=== PATIENT | female | born 1940 | race Caucasian/White ===

== ENCOUNTER 2018-07-08 21:26 | Emergency (ER) | payer MEDICARE, OTHER ==
[~2018-07-08] VITALS: Ht 152.4 cm; Wt 59.0 kg
[~2018-07-08 21:26] MED LIST: ASPIRIN325 PO; BENADRYL25 MG PO; BENICAR40 MG PO; COLACE100 MG PO; CYMBALTA30 MG PO; FLEXERIL PO; LEXAPRO20 MG PO; LOVAZA1000 MG PO; METAMUCIL PAC1 UDPKT PO; MILK OF MA400 MG/5 M PO; MIRALAX17 GM PO; NABUMETONE 750750 M1 PO; NORCO 5-325 TA1 EACH PO; OXYCODONE HCL 55 MG PO; PEPCID AC20 M1 PO; PREDNISONE 20 M20 M1 PO; RELAFEN750 MG PO; XANAX 0.5 MG0.5 M1 PO; XARELTO10 MG PO; ZOCOR 20 MG TAB20 M1 PO
[2018-07-08] MEDS ORDERED: LEXAPRO 10 MG T10 M1 (21:46)
[2018-07-08] MEDS ORDERED: ACTONEL (21:47)
[2018-07-08 22:38] VITALS: BP 117/65
== END 2018-07-08 22:39 | disposition home or self-care (01) ==
LOC: M.ERS 21:26
DX: S61.216A Laceration without foreign body of right little finger without damage to nail, initial encounter (principal); K21.9 Gastro-esophageal reflux disease without esophagitis; I10 Essential (primary) hypertension; E78.5 Hyperlipidemia, unspecified; F41.9 Anxiety disorder, unspecified; Z88.1 Allergy status to other antibiotic agents; W25.XXXA Contact with sharp glass, initial encounter; Y93.89 Activity, other specified; Y92.89 Other specified places as the place of occurrence of the external cause; Y99.8 Other external cause status

== ENCOUNTER 2018-08-25 16:16 | Emergency (ER) | payer MEDICARE, OTHER ==
[~2018-08-25] VITALS: Ht 162.6 cm; Wt 59.0 kg
[~2018-08-25 16:16] MED LIST changes: +ACTONEL; +LEXAPRO 10 MG T10 M1
[2018-08-25] MEDS ORDERED: DOXYCYCLINE 10100 MG PO (18:11)
[2018-08-25 18:44] VITALS: BP 142/80
== END 2018-08-25 18:45 | disposition home or self-care (01) ==
LOC: M.ERS 16:16
DX: S61.411A Laceration without foreign body of right hand, initial encounter (principal); S41.111A Laceration without foreign body of right upper arm, initial encounter; S81.811A Laceration without foreign body, right lower leg, initial encounter; K21.9 Gastro-esophageal reflux disease without esophagitis; I10 Essential (primary) hypertension; E78.5 Hyperlipidemia, unspecified; F41.9 Anxiety disorder, unspecified; Z88.1 Allergy status to other antibiotic agents; W10.8XXA Fall (on) (from) other stairs and steps, initial encounter; Y93.89 Activity, other specified; Y92.098 Other place in other non-institutional residence as the place of occurrence of the external cause; Y99.8 Other external cause status

== ENCOUNTER → 2018-10-18 | Outpatient (CLI) | payer MEDICARE, OTHER ==
[~2018-10-18] MED LIST changes: +DOXYCYCLINE 10100 MG PO
== END ==
LOC: M.RAD 10-03 14:10
DX: Z12.31 Encounter for screening mammogram for malignant neoplasm of breast (principal); M81.0 Age-related osteoporosis without current pathological fracture; M85.89 Other specified disorders of bone density and structure, multiple sites; Z78.0 Asymptomatic menopausal state

== ENCOUNTER → 2021-07-15 | Outpatient (CLI) | payer OTHER ==
--- NOTE | 2021-07-15 14:12 | 2DMMODE ---
[place] [address] 2 D/M-MODE ECHOCARDIOGRAM Name: EMILY RUIZ Room: [facility]#: [id number] Admission: 07/15/21 Attend Phys: Christiano Hutson MD Discharge: Date of : 44 Date of Service: 07/15/21 1412 Report #: [id number] THIS REPORT FOR: cc: Micha Regalado MD, Bruce D. MD Blick, David R. MD [facility] ~ APPROVED REPORT Study performed: 07/15/2021 12:42:33 EXAM: Comprehensive 2D, Doppler, and color-flow Echocardiogram Patient Location: Out-Patient BSA: 1.44 HR: 55 bpm BP: 112/70 mmHg Other Information Study Quality: Good Indications Murmur 2D Dimensions IVSd: 11.30 (7-11mm) LVOT Diam: 20.60 (18-24mm) LVDd: 45.29 mm PWd: 6.71 (7-11mm) Ascending Ao: 30.93 (22-36mm) LVDs: 27.78 (25-40mm) Aortic Root: 29.22 mm Volumes Left Atrial Volume (Systole) LA ESV Index: 20.90 mL/m2 Aortic Valve AoV Peak Miguel.: 1.65 m/s AO Peak Gr.: 10.89 mmHg LVOT Max P.17 mmHg AO Mean Gr.: 6.05 mmHg LVOT Mean P.85 mmHg LVOT Max V: 1.02 m/s AO V2 VTI: 42.68 cm LVOT Mean V: 0.61 m/s GABRIEL (VTI): 2.10 cm2 LVOT V1 VTI: 26.84 cm AI Hughes: 2.21 m/s2 AI PHT: 542.96 [place] [address] 2 D/M-MODE ECHOCARDIOGRAM Name: EMILY RUIZ Room: [facility]#: [id number] Admission: 07/15/21 Attend Phys: Christiano Hutson MD Discharge: Date of : 44 Date of Service: 07/15/21 1412 Report #: [id number] Mitral Valve MV Peak Gr.: 3.36 mmHg MV Mean Gr.: 1.47 mmHg E/A Ratio: 0.89 MV Decel. Time: 184.40 ms MV E Max Miguel.: 0.72 m/s MV PHT: 53.48 ms MVA (PHT): 4.11 cm2 TDI E/Lateral E': 8.00 E/Medial E': 7.20 Medial E' Miguel.: 0.10 m/s Lateral E' Miguel.: 0.09 m/s Pulmonary Valve PV Peak Miguel.: 0.75 m/s PV Peak Gr.: 2.22 mmHg Tricuspid Valve RAP Estimate: 5.00 mmHg TR Peak Gr.: 18.23 mmHg RVSP: 23.23 mmHg PA Pressure: 23.23 mmHg Left Ventricle The left ventricle is normal size. There is normal LV segmental wall motion. There is normal left ventricular wall thickness. Left ventricular systolic function is normal. The left ventricular ejection fraction is within the normal range. LVEF is 55-60%. Grade I - abnormal relaxation pattern. Right Ventricle The right ventricle is normal size. The right ventricular systolic function is normal. Atria The left atrium size is normal. The right atrium size is normal. Aortic Valve Mild aortic valve sclerosis. Moderate aortic regurgitation. There is no aortic valvular stenosis. Mitral Valve Mild mitral annular calcification. There is trace mitral valve regurgitation noted. No evidence of mitral valve stenosis. Tricuspid Valve The tricuspid valve is normal in structure[place] [address] 2 D/M-MODE ECHOCARDIOGRAM Name: EMILY RUIZ Room: [facility]#: [id number] Admission: 07/15/21 Attend Phys: Christiano Hutson MD Discharge: Date of : 44 Date of Service: 07/15/21 1412 Report #: [id number] regurgitation. Pulmonic Valve The pulmonary valve is normal in structure. There is no pulmonic valvular regurgitation. Great Vessels The aortic root is normal in size. IVC is normal in size and collapses >50% with inspiration. Pericardium There is no pericardial effusion. <Conclusion> LVEF is 55-60%. Moderate aortic regurgitation. <ELECTRONICALLY SIGNED> By: Christiano Hutson MD, [facility] 07/15/21 141 [id number] 11 Christiano Hutson MD, FACC /INF
== END ==
LOC: M.CRD 07-08 14:00
PROVIDERS: ATTEND Internal Medicine Cardiovascular Disease
DX: I08.0 Rheumatic disorders of both mitral and aortic valves (principal); R01.1 Cardiac murmur, unspecified